=== PATIENT | male | born 1955 | race African-American/Black ===

== ENCOUNTER 2020-03-22 02:36 | Emergency (ER) | payer OTHER, SELFPAY ==
--- NOTE | 2020-03-22 | ECG_ITS ---
Test Reason : ARRYTHMIA Blood Pressure : / mmHG Vent. Rate : 064 BPM Atrial Rate : 064 BPM P-R Int : 166 ms QRS Dur : 088 ms QT Int : 418 ms P-R-T Axes : 058 013 032 degrees QTc Int : 431 ms Normal sinus rhythm Normal ECG When compared with ECG of 11-MAR-2020 15:53, QT has shortened Referred By: Karie Narayanan Electronically Signed By:LILY TAPIA
[2020-03-22 02:44] VITALS: BP 156/80; PULSE 70; RESP 18; TEMP 36.6; O2SAT 97; BMI 68.3
--- NOTE | 2020-03-22 03:32 | PC.NURSE ---
PT ARRIVES VIA EMS FOR ETOH. PT HERE OFTEN FOR SIMILIAR COMPLAINT OF ETOH SEEKING DETOX. PT STATES HE DRANK 1 GALLON OF ETOH/ HARD LIQUOR 1 [employer] [employer]. PT STATES HE DRINKS APPROX 1 GALLON OF HARD LIQOUR A DAY. PLAN FOR PATIENT TO STAY IN ED OVERNIGHT AND SOBER UP AND GO TO DETOX IN AM. PT TOLD HE NEEDS TO REMAIN IN BED. PT UP OUT OF BED MULTIPLE TIMES BUT REDIRECTABLE. PLAN FOR ETOH BLOOD DRAW PRIOR TO AM SHIFT TO SEE HOW SOBER PATIENT IS FOR DETOX PLACEMENT. AT THIS TIME PATIENT IS AGREEABLE. C/O OF ABDOMINAL BURNING . MOST LIKELY RELATED TO GASTRITIS. PT RAE X 3 WITH EQUAL AND NON LABORED RR. PT SKIN WPD. PT NEURO INTACT.
--- NOTE | 2020-03-22 05:10 | PC.NURSE ---
pt sleeping at this time. took off all monitors. pt remains in nad, sleeping is unlabored.
--- NOTE | 2020-03-22 06:23 | ED_ITS ---
HPI - General Adult General Chief complaint: ETOH/Substance Use <Nic Frazier MD - Last Filed: 03/22/20 07:01> Stated complaint: ETOH <Nic Frazier MD - Last Filed: 03/22/20 07:01> Time Seen by Provider: 03/22/20 02:59 <Nic Frazier MD - Last Filed: 03/22/20 07:01> Source: patient, EMS and RN notes reviewed <Nic Frazier MD - Last Filed: 03/22/20 07:01> Mode of arrival: EMS <Nic Frazier MD - Last Filed: 03/22/20 07:01> Limitations: other ( Alcohol intoxication) <Nic Frazier MD - Last Filed: 03/22/20 07:01> History of Present Illness HPI narrative: 65-year-old male with a history of PTSD, alcohol abuse who presents today intoxicated. Medics were dispatched to his motel that he is staying after police were called for an intoxicated male. The patient denies any head trauma. He does admit to drinking somewhere between 8 and 10 drinks tonight. He reports that over the past 1-2 weeks he has been drinking more than usual after period of sobriety. He does report that he has previously had alcohol withdrawal seizures. Denies any recent trauma, headaches, lightheadedness, chest pain, shortness of breath, abdominal pain. He denies any suicidal homicidal ideation. He is requesting help finding a detoxification center. <Nic Frazier MD - Last Filed: 03/22/20 07:01> Related Data Allergies/adverse reactions: Allergies Allergy/AdvReac Type Severity Reaction Status Date / Time No Known Allergies* Allergy Uncoded 03/10/20 21:38 <Nic Frazier MD - Last Filed: 03/22/20 07:01> Review of Systems Review of Systems: Yes Unobtainable due to mental status (alcohol intoxication) <Nic Frazier MD - Last Filed: 03/22/20 07:01> [facility] Past Medical History Attestation statement: The following information was validated with the patient. <Nic Frazier MD - Last Filed: 03/22/20 07:01> [facility] Narrative: He is able to tell me he has a history of PTSD and alcohol abuse <Nic Frazier MD - Last Filed: 03/22/20 07:01> Medical History: Medical History EtOH dependence <Nic Frazier MD - Last Filed: 03/22/20 07:01> Social History Social History: Social History Alcohol intake: current Alcohol intake frequency: 3 or more drinks per day Alcohol type: hard liquor Smoking Status: Unknown if ever smoked Use of substances other than those prescribed or required for medical reasons: Unknown Advance Directives: No Advance Directives Information Provided: No <Nic Frazier MD - Last Filed: 03/22/20 07:01> Physical Exam Vital Signs and I&O and Narrative: Vital Signs and I&O: Vital Signs Temp 98 F 03/22/20 02:44 Pulse 69 03/22/20 08:12 Resp 16 03/22/20 08:12 BP 144/97 H 03/22/20 08:12 Pulse Ox 97 03/22/20 02:44 Intake & Output 03/21/20 03/22/20 03/22/20 18:59 06:59 18:59 Weight 210 kg Body Mass Index 68.3 <Nic Frazier MD - Last Filed: 03/22/20 07:01> Vital Signs and I&O: Vital Signs Temp 98 F 03/22/20 02:44 Pulse 69 03/22/20 08:12 Resp 16 03/22/20 08:12 BP 144/97 H 03/22/20 08:12 Pulse Ox 97 03/22/20 02:44 Intake & Output 03/21/20 03/22/20 03/22/20 18:59 06:59 18:59 Weight 210 kg Body Mass Index 68.3 <Karie Narayanan DO - Last Filed: 03/22/20 16:14> Const: General: cooperative, no acute distress, awake, intoxicated appearing and other (smells of alcohol) <Nic Frazier MD - Last Filed: 03/22/20 07:01> Orientation/consciousness: patient oriented x3 <Nic Frazier MD - Last Filed: 03/22/20 07:01> HENMT: Head: Yes normal to inspection, Yes normocephalic and Yes atraumatic <Nic Frazier MD - Last Filed: 03/22/20 07:01> Ears: hearing grossly normal bilaterally and external ears normal <Nic Frazier MD - Last Filed: 03/22/20 07:01> Mouth: Normal oral and palatal mucosa present <Nic Frazier MD - Last Filed: 03/22/20 07:01> Eyes: Eyelids: Yes eyelids normal <Nic Frazier MD - Last Filed: 03/22/20 07:01> Conjunctivae: conjunctivae normal <Nic Frazier MD - Last Filed: 03/22/20 07:01> Sclerae: sclerae normal <Nic Frazier MD - Last Filed: 03/22/20 07:01> Corneas: corneas normal <Nic Frazier MD - Last Filed: 03/22/20 07:01> EOM: EOMs intact bilaterally <Nic Frazier MD - Last Filed: 03/22/20 07:01> Neck: Neck: Yes normal visual inspection, Yes full ROM and Yes trachea midline <Nic Frazier MD - Last Filed: 03/22/20 07:01> Resp: Effort & Inspection: normal respiratory effort and no tracheal deviation <Nic Frazier MD - Last Filed: 03/22/20 07:01> Auscultation: clear to auscultation bilaterally <MD Zion Ramirez Last Filed: 03/22/20 07:01> Cardio: Jugular venous distension: no JVD <MD Zion Ramirez Last Filed: 03/22/20 07:01> Rate: regular rate <Nic Frazier MD - Last Filed: 03/22/20 07:01> Rhythm: regular rhythm <Nic Frazier MD - Last Filed: 03/22/20 07:01> Heart sounds: S1 normal heart sound present and S2 normal heart sound present <Nic Frazier MD - Last Filed: 03/22/20 07:01> GI: Inspection: Yes normal to inspection <MD Zion Ramirez Last Filed: 03/22/20 07:01> Palpation (GI): Soft to palpation and nontender <Nic Frazier MD - Last Filed: 03/22/20 07:01> Skin: General skin exam: no rashes or lesions noted <Nic Frazier MD - Last Filed: 03/22/20 07:01> Neuro: General: patient oriented x3 and moves all extremities <Nic Frazier MD - Last Filed: 03/22/20 07:01> Motor exam (neuro): Normal motor muscle tone present throughout <Nic Frazier MD - Last Filed: 03/22/20 07:01> Extrem: General: Yes normal to inspection and Yes full ROM <Nic Frazier MD - Last Filed: 03/22/20 07:01> Psych: Appearance: grossly normal and well kempt <Nic Frazier MD - Last Filed: 03/22/20 07:01> Mental Status: mental status grossly normal <Nic Frazier MD - Last Filed: 03/22/20 07:01> Course Reevaluation(s) Reevaluation #1: Patient remains intoxicated. <Nic Frazier MD - Last Filed: 03/22/20 07:01> Time: 05:30 <Nic Frazier MD - Last Filed: 03/22/20 07:01> Reevaluation #2: Patient signed out to md relief, Dr. Narayanan, pending evaluation for alcohol rehab. <Nic Frazier MD - Last Filed: 03/22/20 07:01> Reevaluation #3: patient eloped from ED <Karie Narayanan DO - Last Filed: 03/22/20 16:14> Medical Decision Making MDM Narrative Medical decision making narrative: 65-year-old male presents today intoxicated, requesting detoxification. His vital signs are reassuring. Physical exam does not reveal any evidence of trauma and he denies any recent falls. I believe that most of his pathology is related to his alcohol abuse / intoxication. We will wait for sobriety, and reassess his desire for detox. <Nic Frazier MD - Last Filed: 03/22/20 07:01> Lab Data Result diagrams: : 03/22/20 08:38 03/22/20 08:38 <Nic Frazier MD - Last Filed: 03/22/20 07:01> Labs: Lab Results 03/22/20 03/22/20 Range/Units 08:38 08:38 WBC 5.1 (4.8-10.8) X10*3/uL RBC 4.35 L (4.60-5.80) X10*6/uL Hgb 14.1 (14.0-18.0) g/dl Hct 40.3 L (42-52) % MCV 92.6 (80-98) fL MCH 32.4 (27.0-33.0) pg MCHC 35.0 (31.0-36.0) g/dl RDW 13.6 (11.0-16.0) % Plt Count 315 (160-400) X10*3/uL MPV 8.9 L (9.4-12.4) fL Immature Gran % (Auto) 0.2 (0.0-0.4) % Neut % (Auto) 59.3 (45-73) % Lymph % (Auto) 31.4 (20-40) % [place] % (Auto) 6.3 (2-11) % Eos % (Auto) 1.6 (0-4) % Baso % (Auto) 1.2 (0-2) % Neut # (Auto) 3.0 (2.0-8.3) X10*3/uL Lymph # (Auto) 1.6 (1.2-4.9) X10*3/uL [place] # (Auto) 0.3 (0.1-1.2) X10*3/uL Eos # (Auto) 0.1 (0.0-0.4) X10*3/uL Baso # (Auto) 0.1 (0.0-0.2) X10*3/uL Abs Immat Gran (auto) 0.01 (0.00-0.03) X10*3/uL Absolute Nucleated RBC 0.000 (0.0-0.012) X10*3/uL Nucleated RBC % (auto) 0.0 (0.0-0.2) /100WBC Sodium 141 (135-145) mmol/L Potassium 3.7 (3.3-5.1) mmol/l Chloride 109 H (96-108) mmol/L Carbon Dioxide 22 (22-29) mmol/L Anion Gap 14 (12-20) BUN 6 L (9-16) mg/dL Creatinine 0.98 (0.5-1.4) mg/dL Estim Creat Clear Calc 137.9 Estimated GFR > 60 Random Glucose 122 H (60-115) mg/dL Calcium 8.6 (8.4-10.2) mg/dL Total Bilirubin 0.4 (0.0-1.0) mg/dL Direct Bilirubin 0.2 (0.0-0.5) mg/dL AST 26 (5-37) U/L ALT 18 (0-40) U/L Alkaline Phosphatase 84 (39-117) U/L Total Protein 6.9 (6.5-8.0) g/dL Albumin 4.1 (3.5-5.0) g/dL <Nic Frazier MD - Last Filed: 03/22/20 07:01> Lab Results 03/22/20 03/22/20 Range/Units 08:38 08:38 WBC 5.1 (4.8-10.8) X10*3/uL RBC 4.35 L (4.60-5.80) X10*6/uL Hgb 14.1 (14.0-18.0) g/dl Hct 40.3 L (42-52) % MCV 92.6 (80-98) fL MCH 32.4 (27.0-33.0) pg MCHC 35.0 (31.0-36.0) g/dl RDW 13.6 (11.0-16.0) % Plt Count 315 (160-400) X10*3/uL MPV 8.9 L (9.4-12.4) fL Immature Gran % (Auto) 0.2 (0.0-0.4) % Neut % (Auto) 59.3 (45-73) % Lymph % (Auto) 31.4 (20-40) % [place] % (Auto) 6.3 (2-11) % Eos % (Auto) 1.6 (0-4) % Baso % (Auto) 1.2 (0-2) % Neut # (Auto) 3.0 (2.0-8.3) X10*3/uL Lymph # (Auto) 1.6 (1.2-4.9) X10*3/uL [place] # (Auto) 0.3 (0.1-1.2) X10*3/uL Eos # (Auto) 0.1 (0.0-0.4) X10*3/uL Baso # (Auto) 0.1 (0.0-0.2) X10*3/uL Abs Immat Gran (auto) 0.01 (0.00-0.03) X10*3/uL Absolute Nucleated RBC 0.000 (0.0-0.012) X10*3/uL Nucleated RBC % (auto) 0.0 (0.0-0.2) /100WBC Sodium 141 (135-145) mmol/L Potassium 3.7 (3.3-5.1) mmol/l Chloride 109 H (96-108) mmol/L Carbon Dioxide 22 (22-29) mmol/L Anion Gap 14 (12-20) BUN 6 L (9-16) mg/dL Creatinine 0.98 (0.5-1.4) mg/dL Estim Creat Clear Calc 137.9 Estimated GFR > 60 Random Glucose 122 H (60-115) mg/dL Calcium 8.6 (8.4-10.2) mg/dL Total Bilirubin 0.4 (0.0-1.0) mg/dL Direct Bilirubin 0.2 (0.0-0.5) mg/dL AST 26 (5-37) U/L ALT 18 (0-40) U/L Alkaline Phosphatase 84 (39-117) U/L Total Protein 6.9 (6.5-8.0) g/dL Albumin 4.1 (3.5-5.0) g/dL <Karie Narayanan DO - Last Filed: 03/22/20 16:14> ECG Data Attestation: I personally reviewed and interpreted this ECG as follows: <Karie Narayanan DO - Last Filed: 03/22/20 16:14> Interpretation: Rate: 64 Rhythm: NSR [place]: normal Normal P waves. Normal CHON. Normal QRS complex. ST T wave : normal qTC: normal no acute ischemia The study has been interpreted contemporaneously by me. . <Karie Narayanan DO - Last Filed: 03/22/20 16:14> Discharge Plan Discharge Clinical Impression: Alcoholic intoxication Qualifiers: Complication of substance-induced condition: uncomplicated Qualified Code(s): F10.920 - Alcohol use, unspecified with intoxication, uncomplicated <Nic Frazier MD - Last Filed: 03/22/20 07:01> Patient Disposition: Elopement <Nic Frazier MD - Last Filed: 03/22/20 07:01> Interventions: ED Discharge Assessment Last Done: 03/22/20 10:03 <Nic Frazier MD - Last Filed: 03/22/20 07:01> Discharge Date/Time: 03/22/20 10:03 <Nic Frazier MD - Last Filed: 03/22/20 07:01>
[2020-03-22 06:41] VITALS: RESP 18
--- NOTE | 2020-03-22 06:41 | PC.NURSE ---
pt sleeping at this time. equal and non labored rr. plan remains pt will seek detox with case management or recovery coaches in am.
[2020-03-22 08:12] VITALS: BP 144/97; PULSE 69; RESP 16
--- NOTE | 2020-03-22 08:19 | PC.NURSE ---
pt sleeping, easily woken requested fluids to drink and given his breakfast, speech clear, no tremors, back to sleep
[2020-03-22 08:41] LABS: MANUAL DIFF FLAG NO
[2020-03-22 08:51] LABS: Basophils Absolute Auto 0.1 X10*3/uL (0.0-0.2); Basophils Percent Auto 1.2 % (0-2); Eosinophils Absolute Auto 0.1 X10*3/uL (0.0-0.4); Eosinophils Percent Auto 1.6 % (0-4); Hematocrit 40.3 % (42-52); Hemoglobin 14.1 g/dl (14.0-18.0); Imm Gran Abs Auto 0.01 X10*3/uL (0.00-0.03); Imm Gran Pct Auto 0.2 % (0.0-0.4); Lymphocytes Absolute Auto 1.6 X10*3/uL (1.2-4.9); Lymphocytes Percent Auto 31.4 % (20-40); Mean Corpuscular Hemoglobin 32.4 pg (27.0-33.0); Mean Corpuscular Volume 92.6 fL (80-98); Mean Platelet Volume 8.9 fL (9.4-12.4); Monocytes Absolute Auto 0.3 X10*3/uL (0.1-1.2); Monocytes Percent Auto 6.3 % (2-11); Neutrophils Percent Auto 59.3 % (45-73); Platelet Count 315 X10*3/uL (160-400); Red Blood Count 4.35 X10*6/uL (4.60-5.80); Red Cell Distribution Width 13.6 % (11.0-16.0); White Blood Count 5.1 X10*3/uL (4.8-10.8)
[2020-03-22 09:07] LABS: Alanine Aminotransferase 18 U/L (0-40); Albumin Level 4.1 g/dL (3.5-5.0); Alkaline Phosphatase 84 U/L (39-117); Anion Gap 14 (12-20); Aspartate Amino Transferase 26 U/L (5-37); Bilirubin Direct 0.2 mg/dL (0.0-0.5); Bilirubin Total 0.4 mg/dL (0.0-1.0); Blood Urea Nitrogen 6 mg/dL (9-16); Calcium 8.6 mg/dL (8.4-10.2); Carbon Dioxide 22 mmol/L (22-29); Chloride 109 mmol/L (96-108); Creatinine Clr Calc Pharmacy 137.9; Estimated Glomerular Filt Rate > 60; Glucose Random 122 mg/dL (60-115); Potassium 3.7 mmol/l (3.3-5.1); Sodium 141 mmol/L (135-145); Total Protein 6.9 g/dL (6.5-8.0)
== END 2020-03-22 10:03 | disposition left against medical advice (07) ==
PROVIDERS: Emergency Provider Emergency Medicine
DX: F10.120 Alcohol abuse with intoxication, uncomplicated (principal); Y90.9 Presence of alcohol in blood, level not specified; F43.10 Post-traumatic stress disorder, unspecified
CPT/HCPCS: 36415; 80048; 80076; 85025; 93005; 93010; 99283; 99284

== ENCOUNTER 2021-04-23 18:59 | Emergency (ER) | payer SELFPAY ==
--- NOTE | 2021-04-23 19:09 | ED_ITS ---
HPI - Alcohol General Chief Complaint: ETOH/Substance Use Stated Complaint: etoh Time Seen by Provider: 04/23/21 19:09 Source: patient and EMS Mode of arrival: EMS Limitations: other (alcohol intoxication) History of Present Illness HPI narrative: patient was drinking today and cannot find a ride back home, went to the police station he was then sent to the hospital MD complaint: alcohol intoxication Last drink: Hours (ago) Chronic alcohol use: Yes Previous visits for alcohol intoxication: Yes Recent trauma: No Associated symptoms: denies other symptoms Treatments prior to arrival: none Related Data Allergies Allergy/AdvReac Type Severity Reaction Status Date / Time No Known Allergies* Allergy Uncoded 03/10/20 21:38 Review of Systems Review of Systems: ROS unable to be obtained due to alcohol intoxication [facility] Past Medical History Attestation statement: The following information was validated with the patient. Medical History EtOH dependence HTN (hypertension) PTSD (post-traumatic stress disorder) Social History Social History (Updated 04/23/21 @ 19:36 by Karie Narayanan DO) Alcohol intake: current Alcohol intake frequency: 3 or more drinks per day Alcohol type: hard liquor Patient Tobacco Use Status: Tobacco use Unknown Advance Directives: No Advance Directives Information Provided: Yes Physical Exam Vital Signs: Vital Signs: Last Vital Signs Temp 98.3 F 04/23/21 19:26 Pulse 73 04/23/21 19:26 Resp 18 04/23/21 19:26 BP 175/101 H 04/23/21 19:26 Pulse Ox 98 04/23/21 19:26 Body Mass Index 30.3 Appearance: Alert. Oriented X2. No acute distress. ETOH odor, slurred speech, emotional Eyes: Pupils equal, round and reactive to light. ENT: Pharynx normal. Atraumatic Neck: Normal inspection. Neck supple. CVS: Normal heart rate and rhythm. Pulses normal. Respiratory: No respiratory distress. Breath sounds normal. Abdomen: Soft and non-tender. Skin: Skin warm and dry. Normal skin color. Normal skin turgor. Extremities: No lower extremity edema. No calf ttp Neuro: Oriented X 2. No motor deficit. No sensory deficit. Course Course Course Narrative: signed out pending clinical sobriety MDM - Alcohol MDM Narrative Medical decision making narrative: 66 yo male with HTN, EOTH abuse here with c/o intoxication and the need for a ride - he has no trauma he is confused about time, we have seen him before for ETOH in the past. Will observe until he is more sober and will provide ride back to his home for him Discharge Plan Discharge Clinical Impression: Alcoholic intoxication Instructions: Alcohol Intoxication (ED) Additional Instructions: return to ED for any worsening symptoms or concerns
[2021-04-23 19:26] VITALS: BP 175/101; PULSE 73; RESP 18; TEMP 36.8; O2SAT 98; BMI 30.3
--- NOTE | 2021-04-23 21:37 | PC.NURSE ---
This RN with Dr Lundberg to pt's bedside to encourage pt to sit on stretcher or chair at bedside until DC as pt is repeatedly roaming around dept and speaking to other patients and staff members. Pt ambulatory with steady, independent gait. Dr Lundberg assesses pt's orientation level with this RN present. Pt aaox4, no deficits. Plan for DC with CARE team to arrange transport home. Awaiting transport to be finalized at this time for safe DC.
[2021-04-23 21:55] VITALS: BP 168/89; PULSE 72; RESP 18; O2SAT 98
[2021-04-24 12:43] LABS: Glucose, Whole Blood 94 mg/dL (60-115)
== END 2021-04-23 21:58 | disposition home or self-care (01) ==
LOC: HO.ED 21:37
PROVIDERS: Emergency Provider Emergency Medicine
DX: F10.229 Alcohol dependence with intoxication, unspecified (principal); Y90.9 Presence of alcohol in blood, level not specified; I10 Essential (primary) hypertension
CPT/HCPCS: 82947; 99283